=== PATIENT | female | born 1940 | race Caucasian/White ===

== ENCOUNTER 2018-09-17 10:05 | Emergency (ER) | payer OTHER ==
[2018-09-17 11:35] LABS: BASOPHILS % (AUTO) 0.7 % (0.0-5.0); HEMATOCRIT 37.1 % (36-48); LYMPHOCYTES % (AUTO) 22.8 % (21.0-51.0); MEAN CORPUSCULAR HEMOGLOBIN 32.9 pg (27.0-33.0); MEAN CORPUSCULAR HGB CONC 34.1 g/dL (32.0-36.0); MEAN CORPUSCULAR VOLUME 96.6 fL (79-99); MONOCYTES % (AUTO) 6.8 % (3.0-13.0); NEUTROPHILS % (AUTO) 66.7 % (40.0-77.0); NUCLEATED RED BLOOD CELLS 0.1 % (0.0-0.19); PLATELET COUNT (AUTO) 121 K/uL (130-400); RED BLOOD CELL COUNT(AUTO) 3.84 MIL/uL (4.00-5.50); RED CELL DISTRIBUTION WIDTH 15.2 % (11.0-15.5); WHITE BLOOD COUNT (AUTO) 4.8 K/uL (4.8-10.8)
[2018-09-17 12:21] LABS: CARBON DIOXIDE 26 mmol/L (21-32); CHLORIDE 103 mmol/L (101-111); POTASSIUM 4.1 mmol/L (3.5-5.1); SODIUM SERUM 137 mmol/L (136-145)
[2018-09-17 12:22] LABS: ALANINE AMINOTRANSFERASE < 6 U/L (12-78); ALBUMIN 3.7 g/dL (3.5-5.0); ASPARTATE AMINOTRANSFERASE 27 U/L (10-37); BILIRUBIN,TOTAL 0.4 mg/dL (0.2-1.0); CREATINE KINASE, TOTAL 26 U/L (21-232); CREATININE 1.6 mg/dL (0.5-1.5); GLOMERULAR FILTR. RATE CALC 33 mL/min (>60); GLUCOSE,RANDOM 111 mg/dL (70-105); TOTAL PROTEIN, SERUM 8.1 g/dL (6.0-8.3); UREA NITROGEN, BLOOD 19 mg/dL (7-18)
== END 2018-09-17 13:23 | disposition home or self-care (01) ==
LOC: EDH 10:05
DX: S16.1XXA Strain of muscle, fascia and tendon at neck level, initial encounter (principal); S00.03XA Contusion of scalp, initial encounter; K21.9 Gastro-esophageal reflux disease without esophagitis; I11.0 Hypertensive heart disease with heart failure; I50.9 Heart failure, unspecified; Z88.8 Allergy status to other drugs, medicaments and biological substances; W18.39XA Other fall on same level, initial encounter; Y93.89 Activity, other specified; Y92.89 Other specified places as the place of occurrence of the external cause; Y99.8 Other external cause status
CPT/HCPCS: 36415; 70450; 72125; 80053; 82550; 84484; 85025; 93005

== ENCOUNTER 2020-04-07 08:25 | Day surgery (SDC) | payer MEDICARE ==
[2020-04-07] VITALS (23 sets, daily range): BP systolic 120–196; BP diastolic 46–98
[~2020-04-07] VITALS: Ht 167.6 cm; Wt 82.1 kg
[2020-04-07] MEDS ORDERED: 0.9%NACL 1000ML 1,000 ML IV ONE (09:38)
[2020-04-07 09:46] LABS: BASOPHILS % (AUTO) 0.5 % (0.0-5.0); EOSINOPHILS % (AUTO) 2.9 % (0.0-8.0); HEMATOCRIT 29.8 % (36-48); LYMPHOCYTES % (AUTO) 26.5 % (21.0-51.0); MEAN CORPUSCULAR HGB CONC 31.2 g/dL (32.0-36.0); MEAN CORPUSCULAR VOLUME 99.3 fL (79-99); MONOCYTES % (AUTO) 7.3 % (3.0-13.0); NEUTROPHILS % (AUTO) 62.6 % (40.0-77.0); PLATELET COUNT (AUTO) 116 K/uL (130-400); RED CELL DISTRIBUTION WIDTH 13.3 % (11.0-15.5); WHITE BLOOD COUNT (AUTO) 4.1 K/uL (4.8-10.8)
[2020-04-07] MEDS ORDERED: LIDOCAINE HCL-MPF 2% 5ML VIAL ONE (09:59)
[2020-04-07] MEDS ORDERED: PROPOFOL 10 MG/ML 20ML VIAL IV ONE (09:59)
[2020-04-07 10:01] LABS: CREATININE 1.4 mg/dL (0.5-1.5); INR 1.05 (0.85-1.15); POTASSIUM 4.2 mmol/L (3.5-5.1); PROTHROMBIN TIME 11.4 SEC (9.6-11.6)
[2020-04-07] MEDS ORDERED: LABETALOL 20MG SYG IV ONE (11:03)
[2020-04-07] MEDS ORDERED: ENALAPRILAT DIHYDRATE 1.25MG/ML 1ML VIAL IV ONE (11:51)
[2020-04-07] MEDS ORDERED: AMLODIPINE 5 MG TAB ONE (12:11)
[2020-04-07] MEDS ORDERED: METOPROLOL TARTRATE 50 MG TAB ONE (12:11)
[2020-04-07] MEDS ORDERED: LABETALOL 20MG SYG IV SCH (14:00)
[2020-08-09] MEDS ORDERED: TRAZ-185 PO (08:11)
[2020-08-09] MEDS ORDERED: OMEP20TA25 PO (08:11)
[2020-08-09] MEDS ORDERED: QUET300T19 PO (08:11)
[2020-08-09] MEDS ORDERED: FOLI1TAB61 PO (08:11)
[2020-08-09] MEDS ORDERED: ATOR40TA69 PO (08:15)
[2020-08-09] MEDS ORDERED: DONE10TA43 PO (08:15)
[2020-08-09] MEDS ORDERED: MEMA10TA55 PO (08:40)
[2020-08-09] MEDS ORDERED: LEVO100T12 PO (08:40)
[2020-08-09] MEDS ORDERED: CARB1TAB20 PO (08:40)
[2020-08-09] MEDS ORDERED: METO100T14 PO (08:40)
[2020-08-09] MEDS ORDERED: AEC81 PO (08:40)
[2020-08-09] MEDS ORDERED: FERR-82 PO (08:40)
[2020-08-09] MEDS ORDERED: FURO20TA4 PO (08:40)
[2020-08-09] MEDS ORDERED: OXCA600T18 PO (08:40)
[2020-08-09] MEDS ORDERED: ALLO100T PO (08:40)
[2020-08-09] MEDS ORDERED: AMLO-258 PO (08:40)
== END 2020-04-07 13:15 ==
LOC: ENDO 08:25
PROVIDERS: ATTEND Internal Medicine Gastroenterology
DX: K92.1 Melena (principal); K29.50 Unspecified chronic gastritis without bleeding; Z20.822 Contact with and (suspected) exposure to COVID-19; D62 Acute posthemorrhagic anemia; K21.00 Gastro-esophageal reflux disease with esophagitis, without bleeding; K29.00 Acute gastritis without bleeding; F31.9 Bipolar disorder, unspecified; G20 Parkinson's disease; E11.9 Type 2 diabetes mellitus without complications; I10 Essential (primary) hypertension; E03.9 Hypothyroidism, unspecified; M81.0 Age-related osteoporosis without current pathological fracture; G30.9 Alzheimer's disease, unspecified; F02.80 Dementia in other diseases classified elsewhere, unspecified severity, without behavioral disturbance, psychotic disturbance, mood disturbance, and anxiety; K74.60 Unspecified cirrhosis of liver; Z79.899 Other long term (current) drug therapy; Z79.82 Long term (current) use of aspirin; Z86.718 Personal history of other venous thrombosis and embolism; Z86.73 Personal history of transient ischemic attack (TIA), and cerebral infarction without residual deficits; Z95.0 Presence of cardiac pacemaker; Z86.010 Personal history of colon polyps; Z87.891 Personal history of nicotine dependence; Z88.8 Allergy status to other drugs, medicaments and biological substances; Z87.11 Personal history of peptic ulcer disease; Z79.01 Long term (current) use of anticoagulants
CPT/HCPCS: 36415; 43239; 80048; 85025; 85610; 87426; 88305; 88342; A4215 ×2; A4216; A4221; A4222; A4223; A4606; A4620; A4657; A4663; J2704; J3490 ×2; J7030

== ENCOUNTER 2020-07-22 14:45 | Inpatient (IN) | payer MEDICARE ==
[~2020-07-22] VITALS: Ht 167.6 cm; Wt 84.5 kg
[2020-07-22 15:22] LABS: APPEARANCE,URINE Clear (CLEAR); BILIRUBIN,URINE Negative (NEGATIVE); COLOR,URINE Dark Yellow (YELLOW); GLUCOSE, URINE (UA) Negative (NEGATIVE); KETONES,URINE Negative (NEGATIVE); LEUKOCYTE ESTERASE ,URINE Negative (NEGATIVE); NITRATE,URINE Negative (NEGATIVE); OCCULT BLOOD,URINE Negative (NEGATIVE); PH,URINE 5.5 (5.0-8.0); PROTEIN,URINE POS 2+ mg/dL (NEGATIVE)
[2020-07-22 15:31] LABS: AMORPHOUS SEDIMENT,UR Few /LPF (None Seen); BACTERIA,URINE Rare /HPF (None Seen); RBC,URINE None Seen /HPF (0-1); SQUAMOUS EPITHELIAL CELL,UR 0-2 /HPF (0-2); WBC,URINE 0-1 /HPF (0-1)
[2020-07-22 16:45] LABS: BASOPHILS % (AUTO) 0.5 % (0.0-5.0); EOSINOPHILS % (AUTO) 1.4 % (0.0-8.0); HEMATOCRIT 28.2 % (36-48); MEAN CORPUSCULAR HGB CONC 32.6 g/dL (32.0-36.0); MEAN CORPUSCULAR VOLUME 85.7 fL (79-99); MONOCYTES % (AUTO) 4.2 % (3.0-13.0); NEUTROPHILS % (AUTO) 81.5 % (40.0-77.0); PLATELET COUNT (AUTO) 232 K/uL (130-400); RED BLOOD CELL COUNT(AUTO) 3.29 MIL/uL (4.00-5.50); RED CELL DISTRIBUTION WIDTH 16.2 % (11.0-15.5); WHITE BLOOD COUNT (AUTO) 13.2 K/uL (4.8-10.8)
[2020-07-22 17:01] LABS: INR 1.16 (0.85-1.15); PROTHROMBIN TIME 12.5 SEC (9.6-11.6)
[2020-07-22 17:03] LABS: CREATININE 1.3 mg/dL (0.5-1.5); POTASSIUM 3.1 mmol/L (3.5-5.1)
[2020-07-22 17:12] LABS: ALBUMIN 2.2 g/dL (3.5-5.0); BILIRUBIN,TOTAL 0.4 mg/dL (0.2-1.0); TOTAL PROTEIN, SERUM 6.7 g/dL (6.0-8.3)
[2020-07-22] MEDS ORDERED: POTASSIUM CHLORIDE 20 MEQ ERTAB PO SCH (18:45)
[2020-07-22] MEDS ORDERED: NITROGLYCERIN 0.4 MG SL TAB SL PRN (19:15)
[2020-07-22] MEDS ORDERED: ACETAMINOPHEN 325 MG TAB PO PRN (19:15)
[2020-07-22] MEDS: CEFTRIAXONE SODIUM 1 GM IV SCH (19:15)
[2020-07-22] MEDS: AZITHROMYCIN 500MG+NS 250ML 250 ML IV SCH (19:15)
[2020-07-22] MEDS ORDERED: ONDANSETRON HCL 4 MG/2 ML VIAL IV PRN (19:15)
[2020-07-22] MEDS ORDERED: MAGNESIUM 2GM PREMIX 50ML 50 ML IV SCH (19:30)
[2020-07-22 19:32] LABS: CREATINE KINASE, TOTAL 120 U/L (21-232); MYOGLOBIN 120 ng/mL (10-92); TROPONIN I < 0.04 ng/mL (0.00-0.06)
[2020-07-22] MEDS ORDERED: POTASSIUM CHLORIDE 20 MEQ ERTAB PO ONE (19:40)
[2020-07-22] MEDS ORDERED: AZITHROMYCIN 500MG+NS 250ML 250 ML IV ONE (19:40)
[2020-07-22] MEDS ORDERED: CEFTRIAXONE SODIUM 1 GM ONE (19:40)
[2020-07-22] MEDS ORDERED: FAMOTIDINE 20MG TAB 20 MG TAB ONE (19:54)
[2020-07-22] MEDS: IPRATROPIUM/ALBUTEROL SULFATE 3 ML SOLUTION IH SCH (21:33)
[2020-07-22] MEDS ORDERED: SODIUM CHLORIDE 3% FOR INHALATION 4 ML/AMP VIAL.NEB IH ONE (21:48)
[2020-07-22] MEDS ORDERED: PEG 3350/NA SULF,BICARB,CL/KCL 4000 ML SOLN ONE (21:55)
[2020-07-22 22:27] LABS: HEMATOCRIT 25.6 % (36-48)
[2020-07-22] MEDS ORDERED: PANTOPRAZOLE 40 MG/VIAL ONE (22:29)
[2020-07-22] MEDS ORDERED: SODIUM CHLORIDE 0.9% 100 ML IV ONE (22:29)
[2020-07-23] MEDS ORDERED: MAGNESIUM 2GM PREMIX 50ML 50 ML IV ONE (00:48)
[2020-07-23] MEDS: IPRATROPIUM/ALBUTEROL SULFATE 3 ML SOLUTION IH SCH ×6 (01:47→21:54)
[2020-07-23] MEDS ORDERED: SODIUM CHLORIDE 3% FOR INHALATION 4 ML/AMP VIAL.NEB IH ONE (02:03)
[2020-07-23] MEDS ORDERED: DEXTROSE 50%-WATER 50 ML DISP.SYRIN IV PRN (02:45)
[2020-07-23] MEDS ORDERED: GLUCAGON 1MG KIT 1 MG ML IM PRN (02:45)
[2020-07-23 03:50] LABS: HEMOGLOBIN A1C 6.2 % (4.0-6.0)
[2020-07-23] MEDS ORDERED: IPRATROPIUM/ALBUTEROL SULFATE 3 ML SOLUTION IH ONE (06:17)
[2020-07-23] MEDS: INSULIN HUMULIN R 100 UNIT/ML 3ML SQ SCH ×4 (07:30→21:00)
[2020-07-23 07:50] LABS: BASOPHILS % (AUTO) 0.5 % (0.0-5.0); EOSINOPHILS % (AUTO) 2.4 % (0.0-8.0); HEMATOCRIT 22.8 % (36-48); LYMPHOCYTES % (AUTO) 18.5 % (21.0-51.0); MEAN CORPUSCULAR HEMOGLOBIN 28.8 pg (27.0-33.0); MEAN CORPUSCULAR HGB CONC 33.8 g/dL (32.0-36.0); MEAN CORPUSCULAR VOLUME 85.4 fL (79-99); NEUTROPHILS % (AUTO) 71.6 % (40.0-77.0); PLATELET COUNT (AUTO) 229 K/uL (130-400); RED BLOOD CELL COUNT(AUTO) 2.67 MIL/uL (4.00-5.50); RED CELL DISTRIBUTION WIDTH 16.8 % (11.0-15.5); WHITE BLOOD COUNT (AUTO) 13.6 K/uL (4.8-10.8)
[2020-07-23 07:54] LABS: ALBUMIN 2.1 g/dL (3.5-5.0); BILIRUBIN,TOTAL 0.3 mg/dL (0.2-1.0); CREATININE 1.4 mg/dL (0.5-1.5); MAGNESIUM 1.8 mg/dL (1.80-2.40); POTASSIUM 3.4 mmol/L (3.5-5.1)
[2020-07-23] MEDS ORDERED: SODIUM CHLORIDE 0.9% 100 ML IV ONE (08:14)
[2020-07-23] MEDS ORDERED: PANTOPRAZOLE 40 MG/VIAL ONE (08:14)
[2020-07-23] MEDS ORDERED: FAMOTIDINE 20MG TAB 20 MG TAB PO SCH (09:00)
[2020-07-23 09:07] VITALS: BP 180/65
[2020-07-23 09:52] LABS: HEMATOCRIT 25.2 % (36-48)
[2020-07-23] MEDS: MORPHINE SULFATE 2 MG/ML 1ML SYG IVP PRN (11:14)
[2020-07-23 11:33] VITALS: BP 188/66
[2020-07-23 12:30] VITALS: BP 143/88
[2020-07-23] MEDS ORDERED: LACT10SO9 PO (13:59)
[2020-07-23] MEDS ORDERED: OXCA600T18 PO (13:59)
[2020-07-23] MEDS ORDERED: ASPI-1197 PO (13:59)
[2020-07-23] MEDS ORDERED: METO100T14 PO (13:59)
[2020-07-23] MEDS ORDERED: TRAZ-185 PO (13:59)
[2020-07-23] MEDS ORDERED: PANT40TA54 PO (13:59)
[2020-07-23] MEDS ORDERED: FURO-152 PO (13:59)
[2020-07-23] MEDS ORDERED: ALLO100T PO (13:59)
[2020-07-23] MEDS ORDERED: MEMA10TA55 PO (13:59)
[2020-07-23] MEDS ORDERED: ACET1TAB25 PO (13:59)
[2020-07-23] MEDS ORDERED: ATOR40TA69 PO (13:59)
[2020-07-23] MEDS ORDERED: CARB1TAB20 PO (13:59)
[2020-07-23] MEDS ORDERED: QUET300T2 PO (13:59)
[2020-07-23] MEDS ORDERED: AMLO-258 PO (13:59)
[2020-07-23] MEDS ORDERED: SENN1TAB72 PO (13:59)
[2020-07-23] MEDS ORDERED: DONE10TA8 PO (13:59)
[2020-07-23] MEDS ORDERED: ACET325T51 PO (13:59)
[2020-07-23] MEDS ORDERED: LEVO100T12 PO (13:59)
[2020-07-23] MEDS ORDERED: FOLI0.8T22 PO (13:59)
[2020-07-23 15:55] VITALS: BP 174/69
[2020-07-23] MEDS: MORPHINE SULFATE 4 MG/1ML SYG IV PRN ×2 (16:44→21:35)
[2020-07-23] MEDS ORDERED: ALPRAZOLAM 0.25 MG TABLET PO SCH (17:00)
[2020-07-23] MEDS ORDERED: PEG 3350/NA SULF,BICARB,CL/KCL 4000 ML SOLN PO SCH (17:00)
[2020-07-23 19:00] VITALS: BP 189/55
[2020-07-23] MEDS: PANTOPRAZOLE SODIUM 80 MG in SODIUM CHLORIDE 0.9% 100 ML IVP SCH (19:08)
[2020-07-23] MEDS: DOCUSATE SODIUM PO SCH (21:00)
[2020-07-23] MEDS: SENNOSIDES PO SCH (21:00)
[2020-07-23] MEDS: ATORVASTATIN CALCIUM 40 MG TABLET PO SCH (21:29)
[2020-07-23] MEDS: QUETIAPINE FUMARATE 100 MG TAB PO SCH (21:29)
[2020-07-23] MEDS: MEMANTINE HCL 5 MG TABLET PO SCH (21:29)
[2020-07-23] MEDS: METOPROLOL TARTRATE 50 MG TAB PO SCH (21:29)
[2020-07-23] MEDS: TRAZODONE HCL 50 MG TAB PO SCH (21:30)
[2020-07-23] MEDS: CARBIDOPA-LEVODOPA 25-100 TAB PO SCH (21:30)
[2020-07-23] MEDS: OXCARBAZEPINE 300 MG TAB PO SCH (21:30)
[2020-07-23] MEDS: AZITHROMYCIN 500MG+NS 250ML 250 ML IV SCH (21:31)
[2020-07-23] MEDS: CEFTRIAXONE SODIUM 1 GM IV SCH (21:32)
[2020-07-23 23:44] VITALS: BP 104/50
[2020-07-24] VITALS (27 sets, daily range): BP systolic 13–173; BP diastolic 42–71
[2020-07-24] MEDS: IPRATROPIUM/ALBUTEROL SULFATE 3 ML SOLUTION IH SCH ×6 (02:00→22:00)
[2020-07-24 05:32] LABS: BASOPHILS % (AUTO) 0.6 % (0.0-5.0); HEMATOCRIT 21.2 % (36-48); LYMPHOCYTES % (AUTO) 25.3 % (21.0-51.0); MEAN CORPUSCULAR HEMOGLOBIN 27.9 pg (27.0-33.0); MEAN CORPUSCULAR HGB CONC 32.5 g/dL (32.0-36.0); MEAN CORPUSCULAR VOLUME 85.8 fL (79-99); MONOCYTES % (AUTO) 6.7 % (3.0-13.0); NEUTROPHILS % (AUTO) 62.3 % (40.0-77.0); PLATELET COUNT (AUTO) 123 K/uL (130-400); RED BLOOD CELL COUNT(AUTO) 2.47 MIL/uL (4.00-5.50); RED CELL DISTRIBUTION WIDTH 16.8 % (11.0-15.5); WHITE BLOOD COUNT (AUTO) 4.8 K/uL (4.8-10.8)
[2020-07-24 05:48] LABS: CREATININE 1.2 mg/dL (0.5-1.5); POTASSIUM 3.4 mmol/L (3.5-5.1)
[2020-07-24] MEDS: LEVOTHYROXINE 100 MCG TABLET PO SCH (07:30)
[2020-07-24] MEDS: INSULIN HUMULIN R 100 UNIT/ML 3ML SQ SCH ×4 (07:30→19:57)
[2020-07-24] MEDS ORDERED: LIDOCAINE HCL 1% 20 ML VIAL ONE (07:44)
[2020-07-24] MEDS ORDERED: PROPOFOL 10 MG/ML 20ML VIAL IV ONE (07:44)
[2020-07-24] MEDS ORDERED: PHENYLEPHRINE HCL 10 MG/ML 1ML VIAL IV ONE (07:45)
[2020-07-24] MEDS: DOCUSATE SODIUM PO SCH ×2 (09:00→20:12)
[2020-07-24] MEDS: SENNOSIDES PO SCH ×2 (09:00→20:12)
[2020-07-24] MEDS: METOPROLOL TARTRATE 50 MG TAB PO SCH ×2 (10:00→20:13)
[2020-07-24] MEDS: FUROSEMIDE 20 MG TABLET PO SCH (10:00)
[2020-07-24] MEDS: MEMANTINE HCL 5 MG TABLET PO SCH ×2 (10:00→20:11)
[2020-07-24] MEDS: Vitamin B Complex/Vit C/Folic Acid PO SCH (10:00)
[2020-07-24] MEDS: OXCARBAZEPINE 300 MG TAB PO SCH ×2 (10:00→20:13)
[2020-07-24] MEDS: ASPIRIN 81MG TAB.CHEW PO SCH (10:00)
[2020-07-24] MEDS: DONEPEZIL HCL 5 MG TAB PO SCH (10:00)
[2020-07-24] MEDS: CARBIDOPA-LEVODOPA 25-100 TAB PO SCH ×3 (10:01→20:13)
[2020-07-24] MEDS: ALLOPURINOL 100 MG TABLET PO SCH (10:01)
[2020-07-24] MEDS: AMLODIPINE BESYLATE 5 MG TAB PO SCH (10:01)
[2020-07-24] MEDS: PANTOPRAZOLE SODIUM 80 MG in SODIUM CHLORIDE 0.9% 100 ML IVP SCH (12:21)
[2020-07-24] MEDS: MORPHINE SULFATE 2 MG/ML 1ML SYG IVP PRN ×2 (15:26→20:14)
[2020-07-24] MEDS ORDERED: SODIUM CHLORIDE 0.9% 250 ML IV ONE (16:54)
[2020-07-24] MEDS: AZITHROMYCIN 500MG+NS 250ML 250 ML IV SCH (18:36)
[2020-07-24] MEDS: CEFTRIAXONE SODIUM 1 GM IV SCH (18:37)
[2020-07-24] MEDS ORDERED: POTASSIUM CHLORIDE 20 MEQ ERTAB PO ONE (20:08)
[2020-07-24] MEDS: ATORVASTATIN CALCIUM 40 MG TABLET PO SCH (20:11)
[2020-07-24] MEDS: TRAZODONE HCL 50 MG TAB PO SCH (20:11)
[2020-07-24] MEDS: QUETIAPINE FUMARATE 100 MG TAB PO SCH (20:13)
[2020-07-24] MEDS ORDERED: POTASSIUM CHLORIDE 20 MEQ ERTAB PO SCH (20:15)
[2020-07-24] MEDS: ACETAMINOPHEN 325 MG TAB PO PRN (22:05)
[2020-07-24 22:57] LABS: HEMATOCRIT 21.6 % (36-48)
[2020-07-25] MEDS: IPRATROPIUM/ALBUTEROL SULFATE 3 ML SOLUTION IH SCH ×3 (02:00→10:00)
[2020-07-25 04:02] VITALS: BP 147/50
[2020-07-25 04:15] LABS: BASOPHILS % (AUTO) 0.6 % (0.0-5.0); EOSINOPHILS % (AUTO) 3.7 % (0.0-8.0); HEMATOCRIT 24.1 % (36-48); LYMPHOCYTES % (AUTO) 19.5 % (21.0-51.0); MEAN CORPUSCULAR HEMOGLOBIN 28.9 pg (27.0-33.0); MEAN CORPUSCULAR HGB CONC 33.2 g/dL (32.0-36.0); MONOCYTES % (AUTO) 5.2 % (3.0-13.0); NEUTROPHILS % (AUTO) 69.3 % (40.0-77.0); PLATELET COUNT (AUTO) 107 K/uL (130-400); RED BLOOD CELL COUNT(AUTO) 2.77 MIL/uL (4.00-5.50); RED CELL DISTRIBUTION WIDTH 16.1 % (11.0-15.5); WHITE BLOOD COUNT (AUTO) 5.3 K/uL (4.8-10.8)
[2020-07-25 04:37] LABS: ALBUMIN 1.8 g/dL (3.5-5.0); BILIRUBIN,TOTAL 0.4 mg/dL (0.2-1.0); CREATININE 1.1 mg/dL (0.5-1.5); CRP QUANTITATIVE 35.4 mg/L (0.00-9.0); POTASSIUM 3.8 mmol/L (3.5-5.1); TOTAL PROTEIN, SERUM 5.4 g/dL (6.0-8.3)
[2020-07-25] MEDS: INSULIN HUMULIN R 100 UNIT/ML 3ML SQ SCH ×4 (04:54→20:57)
[2020-07-25] MEDS: LEVOTHYROXINE 100 MCG TABLET PO SCH (06:24)
[2020-07-25] MEDS: SENNOSIDES PO SCH ×2 (07:56→21:00)
[2020-07-25] MEDS: DOCUSATE SODIUM PO SCH ×2 (07:56→21:00)
[2020-07-25 08:00] VITALS: BP 188/69
[2020-07-25] MEDS: PANTOPRAZOLE SODIUM 40 MG TABLET.DR PO SCH (08:44)
[2020-07-25] MEDS: ALLOPURINOL 100 MG TABLET PO SCH (08:44)
[2020-07-25] MEDS: AMLODIPINE BESYLATE 5 MG TAB PO SCH (08:44)
[2020-07-25] MEDS: OXCARBAZEPINE 300 MG TAB PO SCH ×2 (08:44→20:58)
[2020-07-25] MEDS: MEMANTINE HCL 5 MG TABLET PO SCH ×2 (08:44→20:58)
[2020-07-25] MEDS: DONEPEZIL HCL 5 MG TAB PO SCH (08:44)
[2020-07-25] MEDS: METOPROLOL TARTRATE 50 MG TAB PO SCH ×2 (08:45→20:59)
[2020-07-25] MEDS: CARBIDOPA-LEVODOPA 25-100 TAB PO SCH ×3 (08:45→20:58)
[2020-07-25] MEDS: Vitamin B Complex/Vit C/Folic Acid PO SCH (08:45)
[2020-07-25] MEDS: FUROSEMIDE 20 MG TABLET PO SCH (08:45)
[2020-07-25] MEDS: ASPIRIN 81MG TAB.CHEW PO SCH (08:45)
[2020-07-25 12:00] VITALS: BP 148/44
[2020-07-25 16:00] VITALS: BP 178/64
[2020-07-25] MEDS ORDERED: SODIUM CHLORIDE 0.9% 250 ML IV ONE ×2 (16:41→20:35)
[2020-07-25] MEDS: MORPHINE SULFATE 2 MG/ML 1ML SYG IVP PRN (17:30)
[2020-07-25] MEDS: AZITHROMYCIN 500MG+NS 250ML 250 ML IV SCH (18:09)
[2020-07-25 20:20] VITALS: BP 118/49
[2020-07-25] MEDS: CEFTRIAXONE SODIUM 1 GM IV SCH (20:56)
[2020-07-25] MEDS: ATORVASTATIN CALCIUM 40 MG TABLET PO SCH (20:58)
[2020-07-25] MEDS: QUETIAPINE FUMARATE 100 MG TAB PO SCH (20:58)
[2020-07-25] MEDS: TRAZODONE HCL 50 MG TAB PO SCH (20:58)
[2020-07-25 23:48] VITALS: BP 145/49
[2020-07-26] MEDS: ACETAMINOPHEN 325 MG TAB PO PRN (03:47)
[2020-07-26 03:49] VITALS: BP 173/66
[2020-07-26 04:33] LABS: BASOPHILS % (AUTO) 0.4 % (0.0-5.0); EOSINOPHILS % (AUTO) 2.9 % (0.0-8.0); HEMATOCRIT 22.9 % (36-48); LYMPHOCYTES % (AUTO) 21.9 % (21.0-51.0); MEAN CORPUSCULAR HGB CONC 32.8 g/dL (32.0-36.0); MEAN CORPUSCULAR VOLUME 85.4 fL (79-99); MONOCYTES % (AUTO) 5.3 % (3.0-13.0); NEUTROPHILS % (AUTO) 68.4 % (40.0-77.0); PLATELET COUNT (AUTO) 103 K/uL (130-400); RED BLOOD CELL COUNT(AUTO) 2.68 MIL/uL (4.00-5.50); RED CELL DISTRIBUTION WIDTH 16.2 % (11.0-15.5); WHITE BLOOD COUNT (AUTO) 4.6 K/uL (4.8-10.8)
[2020-07-26 04:56] LABS: ALBUMIN 1.9 g/dL (3.5-5.0); ASPARTATE AMINOTRANSFERASE 35 U/L (10-37); CARBON DIOXIDE 24 mmol/L (21-32); CHLORIDE 109 mmol/L (101-111); CREATININE 0.9 mg/dL (0.5-1.5); GLOMERULAR FILTR. RATE CALC 64 mL/min (>60); GLUCOSE,RANDOM 103 mg/dL (70-105); POTASSIUM 3.1 mmol/L (3.5-5.1); SODIUM SERUM 142 mmol/L (136-145); TOTAL PROTEIN, SERUM 5.5 g/dL (6.0-8.3); UREA NITROGEN, BLOOD 15 mg/dL (7-18)
[2020-07-26 05:11] LABS: BILIRUBIN,TOTAL 0.3 mg/dL (0.2-1.0)
[2020-07-26 05:13] LABS: ALANINE AMINOTRANSFERASE < 6 U/L (12-78)
[2020-07-26] MEDS: LEVOTHYROXINE 100 MCG TABLET PO SCH (06:28)
[2020-07-26] MEDS: MORPHINE SULFATE 2 MG/ML 1ML SYG IVP PRN ×2 (06:28→15:54)
[2020-07-26] MEDS: INSULIN HUMULIN R 100 UNIT/ML 3ML SQ SCH ×4 (06:29→21:00)
[2020-07-26 07:20] VITALS: BP 132/54
[2020-07-26] MEDS: DONEPEZIL HCL 5 MG TAB PO SCH (10:19)
[2020-07-26] MEDS: ALLOPURINOL 100 MG TABLET PO SCH (10:19)
[2020-07-26] MEDS: PANTOPRAZOLE SODIUM 40 MG TABLET.DR PO SCH (10:19)
[2020-07-26] MEDS: MEMANTINE HCL 5 MG TABLET PO SCH ×2 (10:19→21:05)
[2020-07-26] MEDS: FUROSEMIDE 20 MG TABLET PO SCH (10:19)
[2020-07-26] MEDS: METOPROLOL TARTRATE 50 MG TAB PO SCH ×2 (10:19→21:04)
[2020-07-26] MEDS: AMLODIPINE BESYLATE 5 MG TAB PO SCH (10:19)
[2020-07-26] MEDS: OXCARBAZEPINE 300 MG TAB PO SCH ×2 (10:20→21:05)
[2020-07-26] MEDS: ASPIRIN 81MG TAB.CHEW PO SCH (10:20)
[2020-07-26] MEDS: Vitamin B Complex/Vit C/Folic Acid PO SCH (10:20)
[2020-07-26] MEDS: CARBIDOPA-LEVODOPA 25-100 TAB PO SCH ×3 (10:20→21:05)
[2020-07-26] MEDS: DOCUSATE SODIUM PO SCH ×2 (10:21→21:03)
[2020-07-26] MEDS: SENNOSIDES PO SCH ×2 (10:21→21:03)
[2020-07-26] MEDS ORDERED: POLYETHYLENE GLYCOL 3350 17 GM POWD.PACK PO SCH (11:00)
[2020-07-26 11:30] VITALS: BP 118/50
[2020-07-26 11:54] LABS: HEMATOCRIT 24.5 % (36-48)
[2020-07-26] MEDS: FERROUS SULFATE 325 MG TABLET.DR PO SCH ×2 (14:22→20:39)
[2020-07-26 16:29] VITALS: BP 185/65
[2020-07-26] MEDS ORDERED: SODIUM CHLORIDE 0.9% 250 ML IV ONE (20:23)
[2020-07-26] MEDS: CEFTRIAXONE SODIUM 1 GM IV SCH (20:27)
[2020-07-26] MEDS: AZITHROMYCIN 500MG+NS 250ML 250 ML IV SCH (20:27)
[2020-07-26] MEDS: MORPHINE SULFATE 4 MG/1ML SYG IV PRN (20:39)
[2020-07-26] MEDS ORDERED: SENNOSIDES 8.6 MG TABLET ONE (21:02)
[2020-07-26] MEDS: ATORVASTATIN CALCIUM 40 MG TABLET PO SCH (21:04)
[2020-07-26] MEDS: QUETIAPINE FUMARATE 100 MG TAB PO SCH (21:06)
[2020-07-26] MEDS: TRAZODONE HCL 50 MG TAB PO SCH (22:20)
== END 2020-07-26 22:50 | DRG 344 ==
LOC: EDH 14:45 → EDHIP 18:27 → 4AH 07-23 08:40
PROVIDERS: ADMIT Internal Medicine; ATTEND Internal Medicine
PROC: 0D9G8ZZ Drainage of Left Large Intestine, Via Natural or Artificial Opening Endoscopic (ICD-10-PCS; principal; 2020-07-24)
PROC: 30233N1 Transfusion of Nonautologous Red Blood Cells into Peripheral Vein, Percutaneous Approach (ICD-10-PCS; 2020-07-24)
DX: K57.31 Diverticulosis of large intestine without perforation or abscess with bleeding (principal); J18.9 Pneumonia, unspecified organism; D62 Acute posthemorrhagic anemia; J44.0 Chronic obstructive pulmonary disease with (acute) lower respiratory infection; E87.6 Hypokalemia; E66.9 Obesity, unspecified; E83.42 Hypomagnesemia; Z68.31 Body mass index [BMI] 31.0-31.9, adult; D69.6 Thrombocytopenia, unspecified; E03.9 Hypothyroidism, unspecified; E11.9 Type 2 diabetes mellitus without complications; E78.5 Hyperlipidemia, unspecified; F02.80 Dementia in other diseases classified elsewhere, unspecified severity, without behavioral disturbance, psychotic disturbance, mood disturbance, and anxiety; F31.9 Bipolar disorder, unspecified; G20 Parkinson's disease; G30.9 Alzheimer's disease, unspecified; G40.909 Epilepsy, unspecified, not intractable, without status epilepticus; I10 Essential (primary) hypertension; K57.90 Diverticulosis of intestine, part unspecified, without perforation or abscess without bleeding; M10.9 Gout, unspecified; Z95.0 Presence of cardiac pacemaker; Z20.822 Contact with and (suspected) exposure to COVID-19; Z80.8 Family history of malignant neoplasm of other organs or systems; Z80.9 Family history of malignant neoplasm, unspecified; Z82.49 Family history of ischemic heart disease and other diseases of the circulatory system; Z83.3 Family history of diabetes mellitus; Z82.3 Family history of stroke; Z88.0 Allergy status to penicillin; Z88.8 Allergy status to other drugs, medicaments and biological substances
CPT/HCPCS: 36415; 45378; 71045; 80048; 80053; 81001; 82270; 82550; 82948; 83036; 83605; 83735; 83874; 83880; 84145; 84443; 84484; 85014; 85018; 85025; 85610; 85730; 86140; 86156; 86850; 86870; 86900; 86901; 86922; 87040; 87426; 87635; 87641; 93005; 94640; 94664; A4606; C9113; G0378; J0456; J0696; J2270; J2370; J2405; J2704; J3475; J7050; P9016

== ENCOUNTER 2020-09-04 13:54 | Inpatient (IN) | payer MEDICARE ==
[~2020-09-04] VITALS: Ht 167.6 cm; Wt 70.5 kg
[~2020-09-04 13:54] MED LIST: ACET325T51 PO; AEC81 PO; ALLO100T PO; AMLO-258 PO; ASPI-1197 PO; ATOR40TA69 PO; CARB1TAB20 PO; DONE10TA43 PO; DONE10TA8 PO; FERR-82 PO; FOLI0.8T22 PO; FOLI1TAB61 PO; FURO-152 PO; FURO20TA4 PO; LACT10SO9 PO; LEVO100T12 PO; MEMA10TA55 PO; METO100T14 PO; OMEP20TA25 PO; OXCA600T18 PO; PANT40TA54 PO; QUET300T18 PO; QUET300T2 PO; SENN1TAB72 PO; TRAZ-185 PO
[2020-09-04] MEDS ORDERED: 0.9%NACL 1000ML 1,000 ML IV ONE (14:30)
[2020-09-04 14:36] LABS: BASOPHILS % (AUTO) 0.6 % (0.0-5.0); EOSINOPHILS % (AUTO) 2.3 % (0.0-8.0); HEMATOCRIT 36.1 % (36-48); LYMPHOCYTES % (AUTO) 21.4 % (21.0-51.0); MEAN CORPUSCULAR HEMOGLOBIN 30.6 pg (27.0-33.0); MEAN CORPUSCULAR HGB CONC 33.5 g/dL (32.0-36.0); MEAN CORPUSCULAR VOLUME 91.2 fL (79-99); MONOCYTES % (AUTO) 6.2 % (3.0-13.0); NEUTROPHILS % (AUTO) 69.2 % (40.0-77.0); PLATELET COUNT (AUTO) 169 K/uL (130-400); RED BLOOD CELL COUNT(AUTO) 3.96 MIL/uL (4.00-5.50); RED CELL DISTRIBUTION WIDTH 14.8 % (11.0-15.5); WHITE BLOOD COUNT (AUTO) 6.4 K/uL (4.8-10.8)
[2020-09-04 14:48] VITALS: BP 137/46
[2020-09-04 15:05] LABS: ALBUMIN 2.6 g/dL (3.5-5.0); BILIRUBIN,TOTAL 0.6 mg/dL (0.2-1.0); CREATININE 1.4 mg/dL (0.5-1.5); TOTAL PROTEIN, SERUM 6.7 g/dL (6.0-8.3)
[2020-09-04 15:08] LABS: POTASSIUM 2.9 mmol/L (3.5-5.1)
[2020-09-04 16:20] VITALS: BP 148/46
[2020-09-04] MEDS ORDERED: POTASSIUM CHLORIDE 10MEQ/100ML 10 MEQ/100 ML ML IV SCH (17:00)
[2020-09-04 17:39] LABS: APPEARANCE,URINE CLOUDY (CLEAR); BILIRUBIN,URINE NEGATIVE (NEGATIVE); COLOR,URINE YELLOW (YELLOW); GLUCOSE, URINE (UA) NEGATIVE (NEGATIVE); KETONES,URINE NEGATIVE (NEGATIVE); LEUKOCYTE ESTERASE ,URINE LARGE (NEGATIVE); NITRATE,URINE POSITIVE (NEGATIVE); OCCULT BLOOD,URINE MODERATE (NEGATIVE); PH,URINE 6.5 (5.0-8.0); PROTEIN,URINE 100 mg/dL (NEGATIVE); UROBILINOGEN,URINE 0.2 mg/dL (0.2-1.0)
[2020-09-04 17:50] LABS: WBC,URINE 51-100 /HPF (0-1)
[2020-09-04 17:51] LABS: BACTERIA,URINE Moderate /HPF (None Seen); SQUAMOUS EPITHELIAL CELL,UR Rare /HPF (0-2)
[2020-09-04 18:28] VITALS: BP 144/42
[2020-09-04] MEDS ORDERED: ACETAMINOPHEN 325 MG TAB PO PRN ×2 (19:00)
[2020-09-04] MEDS ORDERED: NITROGLYCERIN 0.4 MG SL TAB SL PRN (19:00)
[2020-09-04] MEDS ORDERED: GLUCAGON 1MG KIT 1 MG ML IM PRN (19:00)
[2020-09-04] MEDS ORDERED: DEXTROSE 50%-WATER 50 ML DISP.SYRIN IV PRN (19:00)
[2020-09-04 19:14] VITALS: BP 154/54
[2020-09-04 19:43] VITALS: BP 154/54
[2020-09-04] MEDS: INSULIN HUMULIN R 100 UNIT/ML 3ML SQ SCH (20:25)
[2020-09-04] MEDS: CEFTRIAXONE 1G VIAL IV SCH (20:26)
[2020-09-04 20:28] LABS: CREATINE KINASE, TOTAL 49 U/L (21-232); MYOGLOBIN 85 ng/mL (10-92); TROPONIN I < 0.04 ng/mL (0.00-0.06)
[2020-09-04] MEDS ORDERED: ACETAMINOPHEN WITH CODEINE 1 TAB TAB PO ONE (21:00)
[2020-09-04] MEDS ORDERED: ACETAMINOPHEN WITH CODEINE 1 TAB TAB ONE (22:15)
[2020-09-04] MEDS ORDERED: MAGNESIUM 2GM PREMIX 50ML 50 ML IV SCH (23:30)
[2020-09-04] MEDS: POTASSIUM CHLORIDE 20 MEQ/100 ML BAG IV SCH (23:30)
[2020-09-05 02:35] VITALS: BP 160/51
[2020-09-05 05:07] VITALS: BP 156/47
[2020-09-05 07:26] LABS: BASOPHILS % (AUTO) 0.8 % (0.0-5.0); EOSINOPHILS % (AUTO) 3.4 % (0.0-8.0); HEMATOCRIT 35.9 % (36-48); LYMPHOCYTES % (AUTO) 31.7 % (21.0-51.0); MEAN CORPUSCULAR HEMOGLOBIN 30.4 pg (27.0-33.0); MEAN CORPUSCULAR HGB CONC 32.9 g/dL (32.0-36.0); MEAN CORPUSCULAR VOLUME 92.5 fL (79-99); MONOCYTES % (AUTO) 6.3 % (3.0-13.0); NEUTROPHILS % (AUTO) 57.6 % (40.0-77.0); PLATELET COUNT (AUTO) 141 K/uL (130-400); RED BLOOD CELL COUNT(AUTO) 3.88 MIL/uL (4.00-5.50); WHITE BLOOD COUNT (AUTO) 5.2 K/uL (4.8-10.8)
[2020-09-05] MEDS: INSULIN HUMULIN R 100 UNIT/ML 3ML SQ SCH ×4 (07:30→20:25)
[2020-09-05 07:46] LABS: ALBUMIN 2.4 g/dL (3.5-5.0); BILIRUBIN,TOTAL 0.5 mg/dL (0.2-1.0); CREATININE 1.2 mg/dL (0.5-1.5); MAGNESIUM 1.5 mg/dL (1.80-2.40); TOTAL PROTEIN, SERUM 6.1 g/dL (6.0-8.3)
[2020-09-05] MEDS: POTASSIUM CHLORIDE 20 MEQ/100 ML BAG IV SCH (07:49)
[2020-09-05 08:03] LABS: POTASSIUM 2.9 mmol/L (3.5-5.1)
[2020-09-05] MEDS ORDERED: KCL 20 MEQ ERTAB PO ONE ×2 (08:30→10:01)
[2020-09-05 09:20] VITALS: BP 121/67
[2020-09-05] MEDS: FAMOTIDINE 20MG TAB PO SCH (10:04)
[2020-09-05] MEDS: 0.9%NACL 1000ML 1,000 ML IV SCH (10:05)
[2020-09-05] MEDS ORDERED: ACETAMINOPHEN WITH CODEINE 1 TAB TAB ONE (10:08)
[2020-09-05 12:00] VITALS: BP 167/44
[2020-09-05] MEDS: ACETAMINOPHEN WITH CODEINE 1 TAB TAB PO PRN ×2 (12:16→18:36)
[2020-09-05] MEDS ORDERED: ONDANSETRON 4MG INJ IVP PRN (12:30)
[2020-09-05] MEDS ORDERED: AMLODIPINE 5 MG TAB PO ONE (12:30)
[2020-09-05 13:14] LABS: CREATININE 1.3 mg/dL (0.5-1.5); MAGNESIUM 2.2 mg/dL (1.80-2.40)
[2020-09-05] MEDS: CARBIDOPA-LEVODOPA 25-100 TAB PO SCH ×2 (15:20→20:28)
[2020-09-05 16:00] VITALS: BP 169/50
[2020-09-05] MEDS: ONDANSETRON 4MG INJ IV PRN (16:58)
[2020-09-05] MEDS: CEFTRIAXONE 1G VIAL IV SCH (18:35)
[2020-09-05 20:00] VITALS: BP 180/51
[2020-09-05] MEDS: METOPROLOL TARTRATE 50 MG TAB PO SCH (20:25)
[2020-09-05] MEDS: OXCARBAZEPINE 300 MG TAB PO SCH (20:25)
[2020-09-05] MEDS ORDERED: ATORVASTATIN 40 MG TABLET PO SCH (21:00)
[2020-09-06] VITALS: BP 118/61
[2020-09-06] MEDS: ONDANSETRON 4MG INJ IV PRN ×2 (00:46→10:36)
[2020-09-06] MEDS: 0.9%NACL 1000ML 1,000 ML IV SCH ×2 (01:00→08:40)
[2020-09-06] MEDS: ACETAMINOPHEN WITH CODEINE 1 TAB TAB PO PRN ×2 (02:22→09:53)
[2020-09-06 04:00] VITALS: BP 185/76
[2020-09-06] MEDS ORDERED: HYDROMORPHONE 0.5 MG SYG (0.5MG/0.5ML) IVP ONE (04:30)
[2020-09-06] MEDS ORDERED: HYDROMORPHONE 0.5 MG SYG (0.5MG/0.5ML) ONE (04:43)
[2020-09-06 05:24] LABS: HEMATOCRIT 35.3 % (36-48); MEAN CORPUSCULAR HEMOGLOBIN 30.6 pg (27.0-33.0); MEAN CORPUSCULAR VOLUME 90.1 fL (79-99); PLATELET COUNT (AUTO) 161 K/uL (130-400); RED BLOOD CELL COUNT(AUTO) 3.92 MIL/uL (4.00-5.50); RED CELL DISTRIBUTION WIDTH 14.6 % (11.0-15.5)
[2020-09-06 05:51] LABS: ALBUMIN 2.4 g/dL (3.5-5.0); BILIRUBIN,TOTAL 0.5 mg/dL (0.2-1.0); MAGNESIUM 1.8 mg/dL (1.80-2.40); POTASSIUM 3.3 mmol/L (3.5-5.1); TOTAL PROTEIN, SERUM 6.3 g/dL (6.0-8.3)
[2020-09-06 06:07] LABS: BAND NEUTROPHILS % (MANUAL) 2 % (0-2); BASOPHILS % (MANUAL) 2 % (0-2); EOSINOPHILS % (MANUAL) 7 % (1-6); LYMPHOCYTES % (MANUAL) 11 % (22-44); MAN.DIFF COMMENT-IMPRESSION MANUAL DIFFERENTIAL; MONOCYTES % (MANUAL) 2 % (2-9); PLATELET MORPHOLOGY COMMENT ADEQUATE; REACTIVE LYMPHOCYTES 1 % (0-0); SEGMENTED NEUTROPHILS % 75 % (40-70)
[2020-09-06] MEDS: INSULIN HUMULIN R 100 UNIT/ML 3ML SQ SCH ×2 (06:54→11:30)
[2020-09-06 07:58] VITALS: BP 181/63
[2020-09-06] MEDS: METOPROLOL TARTRATE 50 MG TAB PO SCH (08:39)
[2020-09-06] MEDS: CARBIDOPA-LEVODOPA 25-100 TAB PO SCH (08:39)
[2020-09-06] MEDS: FAMOTIDINE 20MG TAB PO SCH (08:40)
[2020-09-06] MEDS ORDERED: AMLODIPINE 5 MG TAB PO SCH (09:00)
[2020-09-06] MEDS ORDERED: ASPIRIN 81 MG EC TAB PO SCH (09:00)
[2020-09-06] MEDS ORDERED: FUROSEMIDE 20 MG TABLET PO SCH (09:00)
[2020-09-06] MEDS ORDERED: PANTOPRAZOLE 40 MG TAB DR PO SCH (09:00)
[2020-09-06] MEDS: OXCARBAZEPINE 300 MG TAB PO SCH (09:11)
[2020-09-06] MEDS ORDERED: ALLOPURINOL 100 MG TABLET PO SCH (11:19)
[2020-09-06 11:40] VITALS: BP 164/49
== END 2020-09-06 14:45 | disposition hospice, home (50) | DRG 640 ==
LOC: EDH 13:54 → EDHIP 18:46 → 3BH 09-05 08:16
PROVIDERS: ADMIT Internal Medicine; ATTEND Internal Medicine
DX: E87.6 Hypokalemia (principal); E43 Unspecified severe protein-calorie malnutrition; G93.41 Metabolic encephalopathy; N39.0 Urinary tract infection, site not specified; E86.0 Dehydration; Z51.5 Encounter for palliative care; Z66 Do not resuscitate; E83.42 Hypomagnesemia; Z20.822 Contact with and (suspected) exposure to COVID-19; Z68.25 Body mass index [BMI] 25.0-25.9, adult; E03.9 Hypothyroidism, unspecified; E11.22 Type 2 diabetes mellitus with diabetic chronic kidney disease; E78.5 Hyperlipidemia, unspecified; F31.9 Bipolar disorder, unspecified; G20 Parkinson's disease; G30.9 Alzheimer's disease, unspecified; F02.80 Dementia in other diseases classified elsewhere, unspecified severity, without behavioral disturbance, psychotic disturbance, mood disturbance, and anxiety; G40.909 Epilepsy, unspecified, not intractable, without status epilepticus; I12.9 Hypertensive chronic kidney disease with stage 1 through stage 4 chronic kidney disease, or unspecified chronic kidney disease; N18.30 Chronic kidney disease, stage 3 unspecified; K57.90 Diverticulosis of intestine, part unspecified, without perforation or abscess without bleeding; Z86.73 Personal history of transient ischemic attack (TIA), and cerebral infarction without residual deficits; Z88.8 Allergy status to other drugs, medicaments and biological substances; Z83.3 Family history of diabetes mellitus; Z82.3 Family history of stroke; Z82.49 Family history of ischemic heart disease and other diseases of the circulatory system; Z80.0 Family history of malignant neoplasm of digestive organs; Z80.8 Family history of malignant neoplasm of other organs or systems; Z95.0 Presence of cardiac pacemaker
CPT/HCPCS: 36415; 70450; 71045; 80048; 80053; 81001; 82550; 82948; 83605; 83735; 83874; 84132; 84484; 85025; 87040; 87077; 87088; 87186; 87635; 93005; 97039; G0378; J0696; J1170; J2405; J3475; J7030